=== PATIENT | female | born 1930 | race Caucasian/White ===

== ENCOUNTER 2017-09-28 12:42 | Inpatient (IN) | payer MEDICARE, OTHER ==
[2017-09-28] MEDS: ONDANSETRON 4 MG INJ IV (15:18)
[2017-09-28] MEDS: morphine 4 MG/ML VIAL IV (15:19)
[2017-09-28 15:29] LABS: ADD MAN DIFF? NO
[2017-09-28 15:38] LABS: WHITE BLOOD COUNT 8.8 10^3/ul (4.8-10.8)
[2017-09-28 15:38] LABS: BASOPHILS % 0.2 % (0.0-2.0); EOSINOPHILS # 0.1 10^3/ul (0.0-0.5); EOSINOPHILS % 0.7 % (0.0-7.0); HEMATOCRIT 32.9 % (37.0-47.0); HEMOGLOBIN 10.8 g/dl (12.0-16.0); LYMPHOCYTES # 0.9 10^3/ul (0.8-2.9); LYMPHOCYTES % 10.2 % (15.0-51.0); MEAN CORPUSCULAR HEMOGLOBIN 30.4 pg (29.0-33.0); MEAN CORPUSCULAR HGB CONC 32.8 g/dl (32.0-37.0); MEAN CORPUSCULAR VOLUME 92.7 fl (82.0-101.0); MEAN PLATELET VOLUME 10.9 fl (7.4-10.4); MONOCYTE # 0.4 10^3/ul (0.3-0.9); MONOCYTES % 4.7 % (0.0-11.0); NEUTROPHIL # 7.4 10^3/ul (1.6-7.5); NEUTROPHILS % 83.7 % (39.0-77.0); PLATELET COUNT 271 10^3/UL (140-415); RED BLOOD COUNT 3.55 10^6/ul (4.20-5.40); RED CELL DISTRIBUTION WIDTH 14.9 % (11.5-14.5)
[2017-09-28 15:52] LABS: INR 0.98; PROTIME 13.1 Sec (11.9-14.9)
[2017-09-28 15:53] LABS: PARTIAL THROMBOPLASTIN TIME 31.1 Sec (25.0-35.0)
[2017-09-28 15:55] LABS: ANION GAP 16 (8-16); BLOOD UREA NITROGEN 41 mg/dl (7-20); CALCIUM 6.6 mg/dl (8.4-10.2); CARBON DIOXIDE 20 mmol/L (21-31); CHLORIDE 108 mmol/L (97-110); CREATININE 1.89 mg/dl (0.44-1.00); GLUCOSE 185 mg/dl (70-220); POTASSIUM 3.5 mmol/L (3.5-5.1); SODIUM 140 mmol/L (135-144)
[2017-09-28 16:07] LABS: TROPONIN-I 0.019 ng/ml (0.00-0.12)
[2017-09-28] MEDS: PROPOFOL 200 MG INJ IV (17:36)
[2017-09-28] MEDS: SOD CHLORIDE 0.9% 1,000 ML IV (19:00)
[2017-09-28] MEDS ORDERED: ACETAMINOPHEN 325 MG TAB PO (19:00)
[2017-09-28 20:58] LABS: URINE PH (Dip) POC 5.5 (5.0-8.5)
[2017-09-28 20:58] LABS: URINE BLOOD (Dip) POC 1+ (NEGATIVE); URINE GLUCOSE (Dip) POC Negative (NEGATIVE); URINE KETONES (Dip) POC Negative (NEGATIVE); URINE LEUKOCYTE EST (Dip) POC Negative (NEGATIVE); URINE NITRITE (Dip) POC Negative (NEGATIVE); URINE TOTAL PROTEIN POC 3+ (NEGATIVE)
[2017-09-28 21:35] LABS: ADD UMIC YES; UR ASCORBIC ACID NEGATIVE (NEGATIVE); UR BILIRUBIN (Dip) NEGATIVE (NEGATIVE); UR BLOOD (Dip) NEGATIVE (NEGATIVE); UR CLARITY CLEAR (CLEAR); UR COLOR STRAW (YELLOW); UR GLUCOSE (Dip) NEGATIVE (NEGATIVE); UR KETONES (Dip) NEGATIVE (NEGATIVE); UR LEUKOCYTE ESTERASE (Dip) NEGATIVE Leu/ul (NEGATIVE); UR NITRITE (Dip) NEGATIVE (NEGATIVE); UR RBC 1 /HPF (0-5); UR SPECIFIC GRAVITY (Dip) 1.013 (1.003-1.030); UR TOTAL PROTEIN (Dip) 2+ mg/dl (NEGATIVE); UR UROBILINOGEN (Dip) NEGATIVE (NEGATIVE); UR WBC 2 /HPF (0-5)
[2017-09-28 21:37] LABS: CREATININE,URINE RANDOM 54.05 mg/dl (20-320)
[2017-09-28 21:37] LABS: SODIUM,URINE RANDOM 100 mmol/L (30-90)
[2017-09-28] MEDS: AMLODIPINE 5 MG TAB PO (23:00)
[2017-09-29] MEDS: SOD CHLORIDE 0.9% 1,000 ML IV ×3 (03:00→21:25)
[2017-09-29 05:46] LABS: ADD MAN DIFF? NO
[2017-09-29 06:46] LABS: WHITE BLOOD COUNT 6.6 10^3/ul (4.8-10.8)
[2017-09-29 06:46] LABS: BASOPHILS % 0.2 % (0.0-2.0); EOSINOPHILS # 0.1 10^3/ul (0.0-0.5); EOSINOPHILS % 2.1 % (0.0-7.0); HEMATOCRIT 23.4 % (37.0-47.0); HEMOGLOBIN 7.5 g/dl (12.0-16.0); LYMPHOCYTES # 1.1 10^3/ul (0.8-2.9); LYMPHOCYTES % 16.4 % (15.0-51.0); MEAN CORPUSCULAR HEMOGLOBIN 30.9 pg (29.0-33.0); MEAN CORPUSCULAR HGB CONC 32.1 g/dl (32.0-37.0); MEAN CORPUSCULAR VOLUME 96.3 fl (82.0-101.0); MEAN PLATELET VOLUME 11.1 fl (7.4-10.4); MONOCYTE # 0.6 10^3/ul (0.3-0.9); MONOCYTES % 9.5 % (0.0-11.0); NEUTROPHIL # 4.8 10^3/ul (1.6-7.5); NEUTROPHILS % 71.5 % (39.0-77.0); PLATELET COUNT 195 10^3/UL (140-415); RED BLOOD COUNT 2.43 10^6/ul (4.20-5.40); RED CELL DISTRIBUTION WIDTH 15.1 % (11.5-14.5)
[2017-09-29 06:51] LABS: ANION GAP 15 (8-16); BLOOD UREA NITROGEN 34 mg/dl (7-20); CARBON DIOXIDE 20 mmol/L (21-31); CHLORIDE 111 mmol/L (97-110); CREATININE 1.66 mg/dl (0.44-1.00); GLUCOSE 108 mg/dl (70-220); POTASSIUM 3.9 mmol/L (3.5-5.1); SODIUM 142 mmol/L (135-144)
[2017-09-29 07:00] LABS: CALCIUM 5.8 mg/dl (8.4-10.2)
[2017-09-29] MEDS ORDERED: LOSARTAN 50 MG TAB PO (09:00)
[2017-09-29] MEDS ORDERED: FUROSEMIDE 20 MG TAB PO (09:00)
[2017-09-29 10:26] LABS: HEMATOCRIT 25.8 % (37.0-47.0); HEMOGLOBIN 8.1 g/dl (12.0-16.0)
[2017-09-29 10:57] LABS: PHOSPHORUS 5.3 mg/dl (2.5-4.9)
[2017-09-29] MEDS: AMLODIPINE 5 MG TAB PO ×2 (10:57→21:00)
[2017-09-29] MEDS: SERTRALINE 50 MG TAB PO (10:59)
[2017-09-29] MEDS: FERROUS SULFATE (EC) 325 MG TAB PO (10:59)
[2017-09-29] MEDS: CALCIUM GLUCONATE 10% 2 GM in DEXTROSE 5% 100 ML IVPB (11:38)
[2017-09-29 15:32] LABS: HEMATOCRIT 25.5 % (37.0-47.0)
[2017-09-29 15:55] LABS: IRON 16 ug/dl (35-150)
[2017-09-29 16:04] LABS: % IRON SATURATION 8 % SAT (22-52); TOTAL IRON BINDING CAPACITY 212 ug/dl (241-421)
[2017-09-29] MEDS: morphine 2 MG INJ IV (16:52)
[2017-09-29] MEDS: ACETAMINOPHEN 650MG/20.3ML CUP PO (18:12)
[2017-09-29] MEDS: HYDROCODONE/APAP (5/325) TAB PO (23:35)
[2017-09-29] MEDS: CALCIUM/VITAMIN D (250/125) TAB PO (23:35)
[2017-09-30] MEDS: SOD CHLORIDE 0.9% 500 ML IV ×2 (01:00→02:34)
[2017-09-30 02:43] LABS: ADD MAN DIFF? NO
[2017-09-30 02:44] LABS: ABNORMAL IP MESSAGE 1; BASOPHILS % 0.3 % (0.0-2.0); EOSINOPHILS # 0.2 10^3/ul (0.0-0.5); EOSINOPHILS % 2.6 % (0.0-7.0); LYMPHOCYTES # 1.4 10^3/ul (0.8-2.9); LYMPHOCYTES % 20.7 % (15.0-51.0); MEAN CORPUSCULAR HEMOGLOBIN 30.5 pg (29.0-33.0); MEAN CORPUSCULAR HGB CONC 31.4 g/dl (32.0-37.0); MEAN CORPUSCULAR VOLUME 97.3 fl (82.0-101.0); MONOCYTE # 0.7 10^3/ul (0.3-0.9); MONOCYTES % 10.6 % (0.0-11.0); NEUTROPHIL # 4.6 10^3/ul (1.6-7.5); NEUTROPHILS % 65.7 % (39.0-77.0); PLATELET COUNT 175 10^3/UL (140-415); RED BLOOD COUNT 2.26 10^6/ul (4.20-5.40); RED CELL DISTRIBUTION WIDTH 15.1 % (11.5-14.5)
[2017-09-30 03:02] LABS: ANION GAP 13 (8-16); BLOOD UREA NITROGEN 27 mg/dl (7-20); CALCIUM 6.3 mg/dl (8.4-10.2); CARBON DIOXIDE 18 mmol/L (21-31); CHLORIDE 114 mmol/L (97-110); CREATININE 1.44 mg/dl (0.44-1.00); GLUCOSE 95 mg/dl (70-220); SODIUM 141 mmol/L (135-144)
[2017-09-30 03:09] LABS: HEMOGLOBIN 6.9 g/dl (12.0-16.0); POSITIVE DIFF @See below
[2017-09-30 03:18] LABS: CREATINE KINASE 324 IU/L (23-200)
[2017-09-30 03:31] LABS: CK INDEX 0.8; CK-MB 2.49 ng/ml (0.0-2.4); TROPONIN-I 0.031 ng/ml (0.00-0.12)
[2017-09-30 05:41] LABS: ADD MAN DIFF? NO
[2017-09-30 05:55] LABS: WHITE BLOOD COUNT 6.7 10^3/ul (4.8-10.8)
[2017-09-30 05:55] LABS: BASOPHILS % 0.3 % (0.0-2.0); EOSINOPHILS # 0.2 10^3/ul (0.0-0.5); EOSINOPHILS % 3.6 % (0.0-7.0); HEMATOCRIT 23.5 % (37.0-47.0); HEMOGLOBIN 7.3 g/dl (12.0-16.0); LYMPHOCYTES # 1.3 10^3/ul (0.8-2.9); LYMPHOCYTES % 19.3 % (15.0-51.0); MEAN CORPUSCULAR HEMOGLOBIN 30.4 pg (29.0-33.0); MEAN CORPUSCULAR HGB CONC 31.1 g/dl (32.0-37.0); MEAN CORPUSCULAR VOLUME 97.9 fl (82.0-101.0); MONOCYTE # 0.7 10^3/ul (0.3-0.9); MONOCYTES % 9.9 % (0.0-11.0); NEUTROPHIL # 4.5 10^3/ul (1.6-7.5); NEUTROPHILS % 66.8 % (39.0-77.0); PLATELET COUNT 201 10^3/UL (140-415); RED CELL DISTRIBUTION WIDTH 14.9 % (11.5-14.5)
[2017-09-30] MEDS: SOD CHLORIDE 0.9% 1,000 ML IV ×2 (06:25→12:34)
[2017-09-30 06:27] LABS: ALBUMIN 2.5 g/dl (3.3-4.9); ANION GAP 14 (8-16); BLOOD UREA NITROGEN 25 mg/dl (7-20); CALCIUM 6.4 mg/dl (8.4-10.2); CARBON DIOXIDE 19 mmol/L (21-31); CHLORIDE 115 mmol/L (97-110); CREATININE 1.45 mg/dl (0.44-1.00); GLUCOSE 95 mg/dl (70-220); MAGNESIUM 1.8 mg/dl (1.7-2.5); PHOSPHORUS 4.9 mg/dl (2.5-4.9); POTASSIUM 4.1 mmol/L (3.5-5.1); SODIUM 144 mmol/L (135-144)
[2017-09-30] MEDS: CALCIUM/VITAMIN D (250/125) TAB PO ×2 (08:59→21:00)
[2017-09-30] MEDS: SERTRALINE 50 MG TAB PO (08:59)
[2017-09-30] MEDS: AMLODIPINE 5 MG TAB PO ×2 (08:59→20:44)
[2017-09-30] MEDS: FERROUS SULFATE (EC) 325 MG TAB PO (08:59)
[2017-09-30 09:11] LABS: CREATINE KINASE 330 IU/L (23-200)
[2017-09-30 09:14] LABS: IMMEDIATE SPIN CROSSMATCH 1 1
[2017-09-30 09:23] LABS: CK INDEX 0.8; CK-MB 2.73 ng/ml (0.0-2.4); TROPONIN-I 0.032 ng/ml (0.00-0.12)
[2017-09-30] MEDS: SOD CHLORIDE 0.9% 250 ML IV* (12:33)
[2017-09-30 15:03] LABS: ADD MAN DIFF? NO
[2017-09-30 15:06] LABS: WHITE BLOOD COUNT 6.8 10^3/ul (4.8-10.8)
[2017-09-30 15:06] LABS: BASOPHILS % 0.3 % (0.0-2.0); EOSINOPHILS # 0.1 10^3/ul (0.0-0.5); EOSINOPHILS % 1.8 % (0.0-7.0); HEMATOCRIT 28.5 % (37.0-47.0); HEMOGLOBIN 9.2 g/dl (12.0-16.0); LYMPHOCYTES # 0.8 10^3/ul (0.8-2.9); LYMPHOCYTES % 11.9 % (15.0-51.0); MEAN CORPUSCULAR HEMOGLOBIN 30.1 pg (29.0-33.0); MEAN CORPUSCULAR HGB CONC 32.3 g/dl (32.0-37.0); MEAN CORPUSCULAR VOLUME 93.1 fl (82.0-101.0); MEAN PLATELET VOLUME 11.1 fl (7.4-10.4); MONOCYTE # 0.6 10^3/ul (0.3-0.9); MONOCYTES % 8.1 % (0.0-11.0); NEUTROPHIL # 5.2 10^3/ul (1.6-7.5); NEUTROPHILS % 77.6 % (39.0-77.0); PLATELET COUNT 195 10^3/UL (140-415); RED BLOOD COUNT 3.06 10^6/ul (4.20-5.40); RED CELL DISTRIBUTION WIDTH 15.8 % (11.5-14.5)
[2017-09-30 15:23] LABS: CREATINE KINASE 299 IU/L (23-200)
[2017-09-30 15:36] LABS: CK INDEX 0.7; CK-MB 2.04 ng/ml (0.0-2.4); TROPONIN-I 0.019 ng/ml (0.00-0.12)
[2017-09-30] MEDS: HYDROCODONE/APAP (5/325) TAB PO (17:45)
[2017-10-01 05:33] LABS: ADD MAN DIFF? NO
[2017-10-01 05:37] LABS: BASOPHILS % 0.4 % (0.0-2.0); EOSINOPHILS # 0.2 10^3/ul (0.0-0.5); HEMATOCRIT 28.5 % (37.0-47.0); HEMOGLOBIN 9.5 g/dl (12.0-16.0); LYMPHOCYTES # 0.9 10^3/ul (0.8-2.9); LYMPHOCYTES % 11.9 % (15.0-51.0); MEAN CORPUSCULAR HEMOGLOBIN 30.6 pg (29.0-33.0); MEAN CORPUSCULAR HGB CONC 33.3 g/dl (32.0-37.0); MEAN CORPUSCULAR VOLUME 91.9 fl (82.0-101.0); MEAN PLATELET VOLUME 10.8 fl (7.4-10.4); MONOCYTE # 0.6 10^3/ul (0.3-0.9); MONOCYTES % 8.4 % (0.0-11.0); NEUTROPHIL # 5.6 10^3/ul (1.6-7.5); NEUTROPHILS % 75.9 % (39.0-77.0); PLATELET COUNT 217 10^3/UL (140-415); RED CELL DISTRIBUTION WIDTH 16.2 % (11.5-14.5)
[2017-10-01 05:37] LABS: WHITE BLOOD COUNT 7.4 10^3/ul (4.8-10.8)
[2017-10-01 06:10] LABS: ALBUMIN 2.7 g/dl (3.3-4.9); ANION GAP 16 (8-16); BLOOD UREA NITROGEN 19 mg/dl (7-20); CALCIUM 6.8 mg/dl (8.4-10.2); CARBON DIOXIDE 19 mmol/L (21-31); CHLORIDE 114 mmol/L (97-110); CREATININE 1.32 mg/dl (0.44-1.00); GLUCOSE 95 mg/dl (70-220); MAGNESIUM 1.8 mg/dl (1.7-2.5); PHOSPHORUS 3.9 mg/dl (2.5-4.9); POTASSIUM 3.9 mmol/L (3.5-5.1); SODIUM 145 mmol/L (135-144)
[2017-10-01] MEDS: CALCIUM/VITAMIN D (250/125) TAB PO ×2 (08:06→22:40)
[2017-10-01] MEDS: FAMOTIDINE 20 MG TAB PO (08:07)
[2017-10-01] MEDS: AMLODIPINE 5 MG TAB PO ×2 (08:07→21:33)
[2017-10-01] MEDS: FERROUS SULFATE (EC) 325 MG TAB PO (08:07)
[2017-10-01] MEDS: SERTRALINE 50 MG TAB PO (08:07)
[2017-10-01] MEDS: CALCIUM GLUCONATE 10% 2 GM in DEXTROSE 5% 100 ML IVPB (14:51)
[2017-10-01] MEDS ORDERED: hydrALAzine 20 MG INJ IV (17:30)
[2017-10-02 06:51] LABS: ADD MAN DIFF? NO
[2017-10-02 06:57] LABS: WHITE BLOOD COUNT 7.5 10^3/ul (4.8-10.8)
[2017-10-02 06:58] LABS: BASOPHILS % 0.4 % (0.0-2.0); EOSINOPHILS # 0.2 10^3/ul (0.0-0.5); EOSINOPHILS % 2.4 % (0.0-7.0); HEMATOCRIT 28.1 % (37.0-47.0); HEMOGLOBIN 9.5 g/dl (12.0-16.0); LYMPHOCYTES # 1.3 10^3/ul (0.8-2.9); LYMPHOCYTES % 16.9 % (15.0-51.0); MEAN CORPUSCULAR HEMOGLOBIN 30.5 pg (29.0-33.0); MEAN CORPUSCULAR HGB CONC 33.8 g/dl (32.0-37.0); MEAN CORPUSCULAR VOLUME 90.4 fl (82.0-101.0); MEAN PLATELET VOLUME 10.4 fl (7.4-10.4); MONOCYTE # 0.7 10^3/ul (0.3-0.9); MONOCYTES % 8.9 % (0.0-11.0); NEUTROPHIL # 5.3 10^3/ul (1.6-7.5); PLATELET COUNT 238 10^3/UL (140-415); RED BLOOD COUNT 3.11 10^6/ul (4.20-5.40); RED CELL DISTRIBUTION WIDTH 15.2 % (11.5-14.5)
[2017-10-02 07:52] LABS: ALBUMIN 2.7 g/dl (3.3-4.9); ANION GAP 14 (8-16); BLOOD UREA NITROGEN 19 mg/dl (7-20); CALCIUM 7.8 mg/dl (8.4-10.2); CARBON DIOXIDE 20 mmol/L (21-31); CHLORIDE 112 mmol/L (97-110); CREATININE 1.36 mg/dl (0.44-1.00); GLUCOSE 104 mg/dl (70-220); MAGNESIUM 1.9 mg/dl (1.7-2.5); PHOSPHORUS 3.3 mg/dl (2.5-4.9); POTASSIUM 3.6 mmol/L (3.5-5.1); SODIUM 142 mmol/L (135-144)
[2017-10-02] MEDS: CALCIUM/VITAMIN D (250/125) TAB PO ×2 (08:36→20:42)
[2017-10-02] MEDS: SERTRALINE 50 MG TAB PO (08:37)
[2017-10-02] MEDS: AMLODIPINE 5 MG TAB PO ×3 (08:37→20:43)
[2017-10-02] MEDS: FERROUS SULFATE (EC) 325 MG TAB PO (08:37)
[2017-10-02] MEDS: FAMOTIDINE 20 MG TAB PO (08:37)
[2017-10-02] MEDS: ACETAMINOPHEN 650MG/20.3ML CUP PO (14:33)
[2017-10-03] MEDS: CALCIUM/VITAMIN D (250/125) TAB PO ×2 (09:35→20:16)
[2017-10-03] MEDS: FAMOTIDINE 20 MG TAB PO (09:35)
[2017-10-03] MEDS: FERROUS SULFATE (EC) 325 MG TAB PO (09:35)
[2017-10-03] MEDS: AMLODIPINE 5 MG TAB PO ×2 (09:36→20:16)
[2017-10-03] MEDS: SERTRALINE 50 MG TAB PO (09:36)
[2017-10-03] MEDS: INFLUENZA VIRUS VACCINE 0.5 ML (DISPENSING) IM* (09:49)
[2017-10-03] MEDS: LISINOPRIL 10 MG TAB PO (12:13)
[2017-10-03] MEDS: morphine 2 MG INJ IV (22:21)
[2017-10-04] MEDS: CALCIUM/VITAMIN D (250/125) TAB PO ×2 (08:39→21:00)
[2017-10-04] MEDS: AMLODIPINE 5 MG TAB PO ×2 (08:39→21:00)
[2017-10-04] MEDS: SERTRALINE 50 MG TAB PO (08:40)
[2017-10-04] MEDS: FAMOTIDINE 20 MG TAB PO (08:40)
[2017-10-04] MEDS: FERROUS SULFATE (EC) 325 MG TAB PO (08:40)
[2017-10-04] MEDS: LISINOPRIL 10 MG TAB PO ×2 (08:40→13:43)
[2017-10-04] MEDS: HYDROCODONE/APAP (5/325) TAB PO (09:17)
[2017-10-04 09:33] LABS: ANION GAP 11 (8-16); BLOOD UREA NITROGEN 25 mg/dl (7-20); CALCIUM 8.3 mg/dl (8.4-10.2); CARBON DIOXIDE 25 mmol/L (21-31); CHLORIDE 107 mmol/L (97-110); CREATININE 1.27 mg/dl (0.44-1.00); GLUCOSE 105 mg/dl (70-220); POTASSIUM 4.3 mmol/L (3.5-5.1); SODIUM 139 mmol/L (135-144)
[2017-10-05] MEDS: SERTRALINE 50 MG TAB PO (08:42)
[2017-10-05] MEDS: FAMOTIDINE 20 MG TAB PO (08:43)
[2017-10-05] MEDS: AMLODIPINE 5 MG TAB PO (08:43)
[2017-10-05] MEDS: LISINOPRIL 10 MG TAB PO (08:43)
[2017-10-05] MEDS: CALCIUM/VITAMIN D (250/125) TAB PO (08:43)
[2017-10-05] MEDS: FERROUS SULFATE (EC) 325 MG TAB PO (08:43)
[2017-10-05] MEDS: HYDROCODONE/APAP (5/325) TAB PO (09:40)
== END 2017-10-05 18:52 | disposition home health service (06) | DRG 65 ==
LOC: TEL 10-01 20:30 → E/R 12:42 → ICU 17:34
PROC: 0RSKXZZ Reposition Left Shoulder Joint, External Approach (ICD-10-PCS; principal; 2017-09-28)
PROC: 30233N1 Transfusion of Nonautologous Red Blood Cells into Peripheral Vein, Percutaneous Approach (ICD-10-PCS; 2017-09-30)
DX: I61.9 Nontraumatic intracerebral hemorrhage, unspecified (principal); N17.9 Acute kidney failure, unspecified; E83.51 Hypocalcemia; D63.8 Anemia in other chronic diseases classified elsewhere; I12.9 Hypertensive chronic kidney disease with stage 1 through stage 4 chronic kidney disease, or unspecified chronic kidney disease; S43.015A Anterior dislocation of left humerus, initial encounter; F32.9 Major depressive disorder, single episode, unspecified; N18.9 Chronic kidney disease, unspecified; M19.91 Primary osteoarthritis, unspecified site; W18.30XA Fall on same level, unspecified, initial encounter; Y92.009 Unspecified place in unspecified non-institutional (private) residence as the place of occurrence of the external cause; Z91.81 History of falling
CPT/HCPCS: 36415; 36430; 70450; 71010; 72125; 73030; 73060; 76775; 80048; 80069; 81001; 81003; 82306; 82330; 82540; 82550; 82553; 82652; 83540; 83735; 84100; 84155; 84300; 84484; 85014; 85018; 85025; 85610; 85730; 86850; 86900; 86901; 86920; 87040; 87081; 90686; 93005; 94770; 96374; 96375; 97003; 97110; 97116; 97162; 97530; 97535; 99291-25